=== PATIENT | female | born 1980 | race Caucasian/White ===

== ENCOUNTER 2024-04-18 08:17 | Emergency (ER) | payer MEDICAID, OTHER ==
[~2024-04-18] VITALS: Ht 167.6 cm; Wt 79.0 kg
[2024-04-18 08:24] VITALS: O2SAT 100
[2024-04-18 08:48] LABS: HEMATOCRIT 36.4 % (36.0-48.0); HEMOGLOBIN 11.9 g/dL (12.0-16.0); MEAN CORPUSCULAR HEMOGLOBIN 28.4 pg (28.0-32.0); MEAN CORPUSCULAR HGB CONC 32.8 g/dL (31.0-37.0); MEAN CORPUSCULAR VOLUME 86.7 fL (81.0-99.0); PLATELET 238 x1000/uL (130-400); RED CELL DISTRIBUTION WIDTH 13.5 % (11.6-14.6); WHITE BLOOD COUNT 5.8 x1000/uL (4.5-11.0)
[2024-04-18] MEDS ORDERED: AZITHROMYCIN 500 MG TABLET PO ONE (09:45)
[2024-04-18] MEDS: CEFTRIAXONE SODIUM 500MG VIAL IM ONE (09:51)
[2024-04-18] MEDS: AZITHROMYCIN 500 MG TABLET PO NR (10:00)
[2024-04-18 10:05] LABS: CLARITY URINE CLEAR (CLEAR); COLOR URINE YELLOW (YELLOW); GLUCOSE URINE NEGATIVE (NEGATIVE); KETONES URINE NEGATIVE (NEGATIVE); LEUKOCYTE ESTERASE URINE NEGATIVE (NEGATIVE); NITRITE URINE NEGATIVE (NEGATIVE); OCCULT BLOOD URINE TRACE (NEGATIVE); PH URINE 5.5 (4.5-8.0); PROTEIN URINE NEGATIVE (NEGATIVE); SPECIFIC GRAVITY URINE 1.019 (1.005-1.030); UROBILINOGEN URINE 0.2 E.U./dL (0.2-1.0)
[2024-04-18 10:08] LABS: UCG KIT LOT# 840181; UCG SCREEN NEGATIVE
[2024-04-18 10:17] LABS: BACTERIA URINE 1+; SQUAMOUS EPITHELIAL CELL URINE 3+ /lpf (RARE/1+); YEAST URINE NONE SEEN
[2024-04-18] MEDS: IBUPROFEN 400MG TABLET PO ONE (11:10)
[2024-04-18] MEDS ORDERED: DOXY100C5 MT (11:35)
[2024-04-18] MEDS ORDERED: IBUP-2028 MT (11:35)
[2024-04-18 11:56] VITALS: BP 126/86; PULSE 60; RESP 14; TEMP 36.66960; O2SAT 96
[2024-04-21 04:08] LABS: CHLAMYDIA TRACHOMATIS NAA Negative (Negative); NEISSERIA GONORRHOEAE NAA Negative (Negative)
== END 2024-04-18 11:58 | disposition home or self-care (01) ==
LOC: ER 08:17
DX: D25.9 Leiomyoma of uterus, unspecified (principal); N73.0 Acute parametritis and pelvic cellulitis
CPT/HCPCS: 87491; 87591; 81003; 81025; 85027; 87210; 76830; 76856; 96372; 99285; J0696; Z7610